=== PATIENT | female | born 1960 | race Caucasian/White ===

== ENCOUNTER 2017-05-05 09:14 | Day surgery (SDC) | payer BC ==
[~2017-05-05 09:14] MED LIST: Lactated Ringers 1,000 ML IV SCH; Lidocaine 1%/Sod Bicarbonate in NS 8.4% 1 ML Syringe PRN; Sodium Chloride 0.9% 10 ML Syringe FLUSH PRN
[2017-05-05] MEDS ORDERED: Sodium Chloride 0.9% 50 ML SDV ONE (10:37)
[2017-05-05] MEDS ORDERED: Lidocaine 1% with EPINEPHrine 1:100,000 20 ML MDV ONE (10:37)
--- NOTE | 2017-05-05 10:48 | PCM.PREANE ---
Preanesthetic Assessment - Procedure Proposed Procedure: TVH with BSO - Anesthesia/Transfusion/Family Hx Anesthesia History: Prior Anesthesia Reaction Type of Anesthesia Reaction: Excessive Nausea/Vomiting Family History of Anesthesia Reaction: No Transfusion History: No Prior Transfusion(s) - Review of Systems General: No Symptoms Pulmonary: No Symptoms Cardiovascular: Other (Afib, htn) Gastrointestinal: No Symptoms Neurological: No Symptoms Other: Reports: None - Physical Assessment NPO Status Date: 05/04/17 NPO Status Time: 22:00 O2 Sat by Pulse Oximetry: 98 Respiratory Rate: 20 Vital Signs: Last Vital Signs Temp 36.4 C 05/05/17 09:20 Pulse Resp 20 05/05/17 09:20 BP 141/78 H 05/05/17 09:20 Pulse Ox 98 05/05/17 09:20 Height: 1.68 m Weight: 88.904 kg ASA Class: 2 Mental Status: Alert & Oriented x3 Airway Class: Mallampati = 2 Dentition: Reports: Normal Dentition Thyro-Mental Finger Breadths: 3 Mouth Opening Finger Breadths: 3 Lungs: Clear to Auscultation, Normal Respiratory Effort Cardiovascular: Regular Rate, Regular Rhythm - Lab Values: Laboratory Last Values WBC 6.50 K/mm3 (3.98-10.04) 05/05/17 09:48 RBC 4.47 M/mm3 (3.98-5.22) 05/05/17 09:48 Hgb 13.0 gm/L (11.2-15.7) 05/05/17 09:48 Hct 39.3 % (34.1-44.9) 05/05/17 09:48 MCV 87.9 fl (79.4-94.8) 05/05/17 09:48 MCH 29.1 pg (25.6-32.2) 05/05/17 09:48 MCHC 33.1 g/dl (32.2-35.5) 05/05/17 09:48 RDW Std Deviation 41.6 fL (36.4-46.3) 05/05/17 09:48 Plt Count 249 K/mm3 (182-369) 05/05/17 09:48 MPV 11.0 fl (9.4-12.3) 05/05/17 09:48 Neut % (Auto) 55.4 % (34.0-71.1) 05/05/17 09:48 Lymph % (Auto) 34.9 % (19.3-51.7) 05/05/17 09:48 Traverse % (Auto) 7.5 % (4.7-12.5) 05/05/17 09:48 Eos % (Auto) 1.7 (0.7-5.8) 05/05/17 09:48 Baso % (Auto) 0.3 % (0.1-1.2) 05/05/17 09:48 Neut # (Auto) 3.60 K/mm3 (1.56-6.13) 05/05/17 09:48 Lymph # (Auto) 2.27 K/mm3 (1.18-3.74) 05/05/17 09:48 Traverse # (Auto) 0.49 K/mm3 (0.24-0.36) H 05/05/17 09:48 Eos # (Auto) 0.11 K/mm3 (0.04-0.36) 05/05/17 09:48 Baso # (Auto) 0.02 K/mm3 (0.01-0.08) 05/05/17 09:48 Sodium 142 mEq/L (136-145) 05/05/17 09:48 Potassium 4.0 mEq/L (3.5-5.1) 05/05/17 09:48 Chloride 107 mEq/L (98-107) 05/05/17 09:48 Carbon Dioxide 24 mEq/L (21-32) 05/05/17 09:48 Anion Gap 15.0 (5-15) 05/05/17 09:48 BUN 13 mg/dL (7-18) 05/05/17 09:48 Creatinine 0.7 mg/dL (0.55-1.02) 05/05/17 09:48 Est Cr Clr Drug Dosing 86.01 mL/min 05/05/17 09:48 Estimated GFR (MDRD) > 60 mL/min (>60) 05/05/17 09:48 BUN/Creatinine Ratio 18.6 (14-18) H 05/05/17 09:48 Glucose 100 mg/dL (74-106) 05/05/17 09:48 Calcium 10.3 mg/dL (8.5-10.1) H 05/05/17 09:48 Total Bilirubin 0.6 mg/dL (0.2-1.0) 05/05/17 09:48 AST 28 U/L (15-37) 05/05/17 09:48 ALT 72 U/L (14-59) H 05/05/17 09:48 Alkaline Phosphatase 78 U/L (46-116) 05/05/17 09:48 Total Protein 7.2 g/dl (6.4-8.2) 05/05/17 09:48 Albumin 4.0 g/dl (3.4-5.0) 05/05/17 09:48 Globulin 3.2 gm/dL 05/05/17 09:48 Albumin/Globulin Ratio 1.3 (1-2) 05/05/17 09:48 Urine HCG, Qual Negative (NEGATIVE) 05/05/17 09:25 - Allergies Allergies/Adverse Reactions: Allergies Allergy/AdvReac Type Severity Reaction Status Date / Time No Known Allergies Allergy Verified 05/05/17 10:10 - Blood Blood Available: No Product(s) Available: None - Anesthesia Plan Pre-Op Medication Ordered: None - Acknowledgements Anesthesia Type Planned: General Anesthesia (?TIVA) Pt an Appropriate Candidate for the Planned Anesthesia: Yes Alternatives and Risks of Anesthesia Discussed w Pt/Guardian: Yes Pt/Guardian Understands and Agrees with Anesthesia Plan: Yes PreAnesthesia Questionnaire HEENT History: Reports: Other (See Below) Other HEENT History: TMJ Cardiovascular History: Reports: Afib, Hypertension, Other (See Below) Other Cardiovascular History: left ventricular diastolic dysfunction, bradycardia, chest pain Respiratory History: Reports: None Gastrointestinal History: Reports: G[employer] History: Reports: Other (See Below) Other OB/BYN History: pelvic pain Musculoskeletal History: Reports: Other (See Below) Other Musculoskeletal History: foot repair Neurological History: Reports: None Psychiatric History: Reports: Other (See Below) Other Psychiatric History: fatigue Endocrine/Metabolic History: Reports: None Hematologic History: Reports: Anemia, Other (See Below) Other Hematologic History: hypokalemia Immunologic History: Reports: None Oncologic (Cancer) History: Reports: None Dermatologic History: Reports: None - Past Surgical History Head Surgeries/Procedures: Reports: None HEENT Surgical History: Reports: Tonsillectomy Respiratory Surgical History: Reports: None GI Surgical History: Reports: Colonoscopy Female Surgical History: Reports: Endometrial Ablation Male Surgical History: Reports: None Endocrine Surgical History: Reports: None Neurological Surgical History: Reports: None Musculoskeletal Surgical History: Reports: None Oncologic Surgical History: Reports: None Dermatological Surgical History: Reports: None - SUBSTANCE USE Second Hand Smoke Exposure: No Recreational Drug Use History: No - HOME MEDS Home Medications: Home Meds Aspirin [Halfprin] 162 mg PO DAILY 05/04/17 [History] Escitalopram Oxalate [Escitalopram Oxalate] 10 mg PO DAILY 05/04/17 [History] Ibuprofen 600 mg PO Q6H PRN 05/04/17 [History] Losartan Potassium [Losartan Potassium] 25 mg PO BID 05/04/17 [History] Metoprolol Tartrate [Metoprolol Tartrate] 25 mg PO BID 05/04/17 [History] Multivitamin [Poly-Vitamin] 1 tab PO DAILY 05/04/17 [History] Nitroglycerin [Nitroglycerin] 0.4 mg PO Q5M PRN 05/04/17 [History] - CURRENT (IN HOUSE) MEDS Current Meds: Current Medications Lactated Ringer's (Ringers, Lactated) 1,000 mls @ 125 mls/hr IV ASDIRECTED AMANDA Stop: 05/05/17 23:00 Last Admin: 05/05/17 09:50 Dose: 125 mls/hr Lidocaine/Sodium Bicarbonate (Buffered Lidocaine 1% In Ns 8.4%) 0.25 ml .XX ONETIME PRN PRN Reason: Prior to IV Start Stop: 05/05/17 18:00 Last Admin: 05/05/17 09:49 Dose: 0.25 ml Sodium Chloride (Saline Flush) 10 ml FLUSH ASDIRECTED PRN PRN Reason: Keep Vein Open Stop: 05/05/17 18:00
[2017-05-05] MEDS ORDERED: Scopolamine 1.5 MG Transdermal Patch TRDERM ONE (11:01)
[2017-05-05] MEDS ORDERED: Ondansetron 4 MG/2 ML SDV ONE (11:24)
[2017-05-05] MEDS ORDERED: Lactated Ringers 2,000 ML ONE (11:24)
[2017-05-05] MEDS ORDERED: Propofol 200 MG/20 ML SDV ONE ×3 (11:25→12:48)
[2017-05-05] MEDS ORDERED: Ketamine 500 mg/10 ML MDV ONE ×2 (11:25→14:05)
[2017-05-05] MEDS ORDERED: Midazolam 1 MG/ML 2 ML SDV ONE (11:25)
[2017-05-05] MEDS ORDERED: Lidocaine 1% 6 ML ONE (11:25)
[2017-05-05] MEDS ORDERED: fentaNYL 250 MCG/5 ML SDV ONE (11:25)
[2017-05-05] MEDS ORDERED: Dexamethasone 4 MG/ML 5 ML MDV ONE (11:26)
[2017-05-05] MEDS ORDERED: Rocuronium 50 MG/5 ML Vial ONE (11:29)
[2017-05-05] MEDS ORDERED: ceFAZolin 1 GM Vial ONE (11:34)
[2017-05-05] MEDS ORDERED: Haloperidol Lactate 5 MG/ML SDV IVPUSH ONE (12:49)
[2017-05-05] MEDS ORDERED: HYDROmorphone 0.5 MG/0.5 ML Syringe IVPUSH PRN (12:49)
[2017-05-05] MEDS ORDERED: fentaNYL 100 MCG/2 ML SDV IVPUSH PRN (12:49)
[2017-05-05] MEDS ORDERED: HYDROmorphone 1 MG/ML Syringe ONE (12:54)
[2017-05-05] MEDS ORDERED: diphenhydrAMINE 50 MG/ML SDV ONE (12:55)
[2017-05-05] MEDS ORDERED: Acetaminophen/oxyCODONE 325-5 MG Tab PO PRN (13:10)
[2017-05-05] MEDS ORDERED: Ondansetron 4 MG/2 ML SDV IVPUSH PRN (13:10)
[2017-05-05] MEDS ORDERED: Ketorolac 30 MG/ML SDV IVPUSH SCH (13:15)
--- NOTE | 2017-05-05 13:18 | PCM.OPNOTE ---
- General Post-Op/Procedure Note Date of Surgery/Procedure: 05/05/17 Operative Procedure(s): Total vaginal hysterectomy with bilateral salpingo- oophorectomy Findings: Uterus is upper limits normal size. Patient status post tubal ligation. Fallopian tubes and ovaries were normal and functional in nature. Pre Op Diagnosis: 1. Menorrhagia. 2. Dysmenorrhea Post-Op Diagnosis: Same Anesthesia Technique: General ET Tube Other Anesthesia Type: Lidocaine quarter percent with [id number] mL total Primary Surgeon: Lux Patterson Secondary Surgeon: Marcos Leavitt Anesthesia Provider: Johnna Keating Traffic Rate Analyst: Maria Luisa Dominguez Reason Traffic Rate Analyst Was Necessary: Retraction, patient safety, quality of care Role of Traffic Rate Analyst: retraction Pathology: Uterus, bilateral tubes and ovaries Fluid Replacement, Intraop: 1,500 EBL in mLs: 100 Complications: None Condition: Good Free Text/Narrative:: Surgery duration: 38 minutes Procedure: The patient was placed in supine position on the operating table. General endotracheal anesthesia was accomplished. After positioning, and adequate prep and drape, the procedure was then performed. Sterile speculum was placed in the vagina and cervix was visualized. Cervix was injected with lidocaine quarter percent with epinephrine 20 mL used. A full circumference incision was made in the cervical epithelium. The bladder was pushed well back off cervix. Posterior cul-de-sac was then entered sharply without problems. Left uterosacral was crossclamped with a Enseal vessel closure system. The left uterosacral and then the right uterosacral ligament pedicles were developed using the Enseal system. The anterior cul-de-sac was then entered without problems and the uterine vasculature, cardinal ligament and broad ligament then developed using Enseal vessel closure system. The uterus was inverted at this time and upper broad ligament fallopian tube pedicles were crossclamped with Rukhsana clamps. Specimen was totally removed. Both these pedicles were then secured with a Enseal vessel closure system. Left and right fallopian tube was normal in appearance.. Using Enseal vessel closure system each of the tubes was then removed and sent with the specimen. Both ovaries were removed per patient's desire. The Enseal vessel closure system was used to remove both ovaries. The patient was found to be hemostatically intact at this time. Vaginal cuff was sutured for hemostatic reasons with a running locked suture of 0 Monocryl from the 2 o'clock position to the 10 o'clock position posteriorly. Vaginal cuff was then closed from right to left side with a running locked suture of 0 Monocryl. Patient was returned to supine position and awakened from general endotracheal anesthesia. She tolerated the procedure was then left the operating room in satisfactory condition.
[2017-05-05] MEDS ORDERED: Ketorolac 30 MG/ML SDV ONE (13:26)
--- NOTE | 2017-05-05 13:36 | PCM.POSTAN ---
POST ANESTHESIA ASSESSMENT - MENTAL STATUS Mental Status: Alert, Oriented - VITAL SIGNS Pulse Rate: 60 SaO2: 97 Resp Rate: 15 Blood Pressure: 145/79 Temperature: 36.4 C - RESPIRATORY Respiratory Status: Respiratory Rate WNL, Airway Patent, O2 Saturation Stable, Supplemental Oxygen - CARDIOVASCULAR CV Status: Pulse Rate WNL, Blood Pressure Stable - GASTROINTESTINAL GI Status: No Symptoms - PAIN Pain Score: 0 - POST OP HYDRATION Hydration Status: Adequate & Stable
== END 2017-05-05 15:15 | disposition home or self-care (01) ==
LOC: JD.SDS 09:14
PROVIDERS: ATTEND Obstetrics & Gynecology
DX: N72 Inflammatory disease of cervix uteri (principal); N83.11 Corpus luteum cyst of right ovary; N83.12 Corpus luteum cyst of left ovary; D25.9 Leiomyoma of uterus, unspecified; N87.9 Dysplasia of cervix uteri, unspecified; I10 Essential (primary) hypertension; N88.8 Other specified noninflammatory disorders of cervix uteri; Z79.899 Other long term (current) drug therapy; Z98.51 Tubal ligation status
CPT/HCPCS: 36415; 58262; 80053; 81025; 85025; 86850; 86900; 86901; A9270; J0690; J1100; J1170; J1200; J1885; J2250; J2405; J3010; J7120; 00944; J2704